=== PATIENT | female | born 1955 | race Caucasian/White ===

== ENCOUNTER 2021-04-16 14:23 | Emergency (ER) | payer OTHER ==
[2021-04-16 14:34] VITALS: BP 180/79; PULSE 89; TEMP 97.9; BMI 30.5
[2021-04-16] MEDS ORDERED: ACETAMINOPHEN 500 MG TABLET (FP) PO ONE (15:35)
[2021-04-16] MEDS ORDERED: ACETAMINOPHEN 500 MG TABLET (FP) ONE (15:45)
== END 2021-04-16 17:23 | disposition home or self-care (01) ==
LOC: JER 14:23
DX: G44.319 Acute post-traumatic headache, not intractable (principal); W01.198A Fall on same level from slipping, tripping and stumbling with subsequent striking against other object, initial encounter
CPT/HCPCS: 70450-TC; 99284-25

== ENCOUNTER 2021-08-04 14:35 | Emergency (ER) | payer OTHER ==
[2021-08-04 14:55] VITALS: BP 139/70; PULSE 90; TEMP 98.2; BMI 31.8
[2021-08-04] MEDS ORDERED: KETOROLAC TROMETHAMINE 30 MG/1 ML VIAL IM ONE (15:33)
[2021-08-04] MEDS ORDERED: KETOROLAC TROMETHAMINE 30 MG/1 ML VIAL ONE (15:49)
== END 2021-08-04 20:07 | disposition home or self-care (01) ==
LOC: JERFT 14:35
PROC: 3E0233Z Introduction of Anti-inflammatory into Muscle, Percutaneous Approach (ICD-10-PCS; principal; 2021-08-04)
DX: M25.561 Pain in right knee (principal)
CPT/HCPCS: 73562-TC-RT-FY; 93971-TC; 99284-25